=== PATIENT | male | born 1940 | race Caucasian/White ===

== ENCOUNTER 2019-12-19 08:27 | Outpatient (CLI) | payer MEDICARE, SELFPAY ==
[2019-12-12 10:06] VITALS: BMI 31.7
[2019-12-19] VITALS (7 sets, daily range): BP systolic 110–129; BP diastolic 48–71; PULSE 63–83; RESP 16–20; O2SAT 90
--- NOTE | ~2019-12-19 | US_ITS ---
EXAMINATION: US thoracentesis DATE: 12/19/2019 10:43 INDICATION: pleural effusion TECHNIQUE: The procedure and its risks, benefits, and alternatives were discussed with the patient. P otential risks discussed included bleeding, infection, and pneumothorax. The patient understood the r isks and agreed to proceed. The skin was prepped and draped in sterile fashion. 1% lidocaine was used for local anesthesia. Under ultrasound guidance, a 5 Fr catheter with trochar was advanced into the right pleural effusion. Fluid was aspirated. The catheter was removed, and a dressing was applied. Th ere were no immediate complications. FINDINGS: Ultrasound images demonstrate a right pleural effusion and the catheter within the fluid. IMPRESSION: 1. Successful ultrasound-guided thoracentesis yielding 525 mL of opaque, red fluid. Reviewed, dictated and finalized at location A. IMPRESSION: 1. Successful ultrasound-guided thoracentesis yielding 525 mL of opaque, red f luid.
--- NOTE | ~2019-12-19 | XR_ITS ---
EXAMINATION: XR chest 1V DATE: 12/19/2019 10:41 INDICATION: Right pleural effusion status post thoracentesis. Right lung cancer. TECHNIQUE: A single frontal view of the chest was obtained. COMPARISON: Chest 2 views 11/04/2010 FINDINGS: There is a small right pleural effusion. There are airspace opacities at right lung base. T here is a 1.7 cm nodule at the junction of right mid and upper lung zones. No pneumothorax. The heart size is normal. Surgical clips in the right upper quadrant are likely from cholecystectomy. IMPRESSION: 1. 1.7 cm nodule in right lung suspicious for malignancy. 2. Small right pleural effusion. 3. Airspace opacities at right lung base, consistent with atelectasis versus pneumonia. Reviewed, dictated and finalized at location A. IMPRESSION: 1. 1.7 cm nodule in right lung suspicious for malignancy. 2. Small right pleural effusion. 3. Airspace opacities at right lung base, consistent with atelectasis versus pn eumonia.
[2019-12-19 09:03] LABS: Mean Platelet Volume 9.5 fl (7.4-10.4); Platelet Count Result 310 k/mm3 (150-375)
[2019-12-19 09:14] LABS: INR 1.1; Prothrombin Time 13.8 Seconds (11.1-14.7)
[2019-12-19 11:28] LABS: pH Pleural Fluid 7.211 (7.210-7.500)
--- NOTE | 2019-12-19 13:34 | SUR.PHASEII ---
1240 - dr coronel called on okayed for pt to be discharged home. iv dc'd
[2019-12-19 14:12] LABS: Appearance Pleural Fluid Bloody (Clear); Color Pleural Fluid Red (Colorless); Pleural fluid source Pleural fluid
[2019-12-19 14:13] LABS: Lymphocytes Pleural Fluid 86 %; Monocytes Pleural Fluid 1 %; Neutrophils Pleural Fluid 12 % (0-25); Nucleated Cell Pleural Fluid 1907 /uL (0-1000); RBC Pleural Fluid 41513 /uL (0-0)
[2019-12-19 14:14] LABS: Other Cells Pleural Fluid 1 %
[2019-12-23 17:00] LABS: Glucose Pleural Fluid 46 mg/dL; LDH Pleural Fluid 245 U/L; Total Protein Pleural Fluid 4.2 g/dL
== END 2019-12-19 08:28 | disposition home or self-care (01) ==
PROVIDERS: Radiology Diagnostic Radiology
DX: J90 Pleural effusion, not elsewhere classified (principal)
CPT/HCPCS: 32555; 36415; 71045; 82945; 83615; 83986; 84157; 85049; 85610; 87070; 87075; 87205; 88104; 88108; 88184; 88305; 89051